=== PATIENT | female | born 1985 | race Caucasian/White ===

== ENCOUNTER → 2016-11-17 | Outpatient (CLI) | payer OTHER ==
[2016-01-05 19:35] VITALS: BP 140/90
--- NOTE | 2016-11-17 14:34 | KCIC ---
PROCEDURE Thoracic and lumbar radiographs. HISTORY Acute midline upper thoracic pain, heavy lifting at work, intermittent low back pain for 2 years COMPARISON None FINDINGS Thoracic spine: Four views of the thoracic spine are submitted. There is mild smooth dextroscoliosis centered about T5-T6. Intrapedicular at distance is preserved. Thoracic vertebral body stature and AP alignment are adequate. No acute osseous abnormality is identified by radiographs. Lumbar spine: Five views of the lumbar spine are submitted. Lumbar vertebral body stature and AP alignment are adequate. Intervertebral disc spaces are maintained. No acute osseous abnormality is identified by radiographs. IMPRESSION No acute osseous abnormality is identified of the thoracic or lumbar spine by radiographs. There is mild mid thoracic dextroscoliosis. Electronically signed by: Damir Moyer MD (Nov 17, 2016 14:32:51)
== END | disposition home or self-care (01) ==
LOC: KCIC 11:20
PROVIDERS: ATTEND Physician Assistant Medical
DX: M41.84 Other forms of scoliosis, thoracic region (principal); M54.5 Low back pain
CPT/HCPCS: 72072; 72110

== ENCOUNTER 2017-02-19 22:05 | Emergency (ER) | payer OTHER ==
[~2017-02-19] VITALS: Ht 175.3 cm; Wt 94.8 kg
[2017-02-19 22:29] VITALS: BP 162/84
--- NOTE | 2017-02-19 22:43 | PHYS DOC ---
Past Medical History Past Medical History: No Pertinent History Past Surgical History: Other Additional Past Surgical Histo: , LEEP Alcohol Use: None Drug Use: None Adult General Chief Complaint Chief Complaint: DIZZY/LIGHT HEADED HPI HPI 31-year-old female completely asymptomatic now presents to the emergency department to find out if she is . Patient states she's had some home tests which she wasn't sure might be faintly positive and some home tests which were negative so she came to the emergency department to get a definitive answer. Patient is asymptomatic and has no pelvic pain or vaginal bleeding. Review of Systems Review of Systems Constitutional: Denies fever or chills [] Eyes: Denies change in visual acuity, redness, or eye pain [] HENT: Denies nasal congestion or sore throat [] Respiratory: Denies cough or shortness of breath [] Cardiovascular: No additional information not addressed in HPI [] GI: Denies abdominal pain, nausea, vomiting, bloody stools or diarrhea [] : Denies dysuria or hematuria [] Musculoskeletal: Denies back pain or joint pain [] Integument: Denies rash or skin lesions [] Neurologic: Denies headache, focal weakness or sensory changes [] Endocrine: Denies polyuria or polydipsia [] Allergies Allergies Allergies Coded Allergies Type Severity Reaction Last Updated Verified No Known Drug Allergies 02/25/14 No Physical Exam Physical Exam Well-appearing patient distress completely benign exam. Nurse Pedro present for history and exam. Constitutional: Well developed, well nourished, no acute distress, non-toxic appearance. [] HENT: Normocephalic, atraumatic, bilateral external ears normal, oropharynx moist, no oral exudates, nose normal. [] Eyes: PERRLA, EOMI, conjunctiva normal, no discharge. [] Neck: Normal range of motion, no tenderness, supple, no stridor. [] Cardiovascular:Heart rate regular rhythm, no murmur [] Lungs & Thorax: Bilateral breath sounds clear to auscultation [] Abdomen: Bowel sounds normal, soft, no tenderness, no masses, no pulsatile masses. [] Skin: Warm, dry, no erythema, no rash. [] Back: No tenderness, no CVA tenderness. [] Extremities: No tenderness, no cyanosis, no clubbing, ROM intact, no edema. [] Neurologic: Alert and oriented X 3, normal motor function, normal sensory function, no focal deficits noted. [] Psychologic: Affect normal, judgement normal, mood normal. [] Current Patient Data Vital Signs Vital Signs Date Time Temp Pulse Resp B/P (MAP) Pulse Ox O2 Delivery O2 Flow Rate FiO2 02/19/17 22:29 98.5 85 18 98 Room Air 98.5 Lab Values Laboratory Tests Test 02/19/17 21:28 POC Urine HCG, Qualitative Hcg negative (Negative) EKG EKG [] Radiology/Procedures Radiology/Procedures [] Course & Med Decision Making Course & Med Decision Making Pertinent Labs and Imaging studies reviewed. (See chart for details) Normal exam nontender abdomen and pelvis. Asymptomatic patient with a completely benign history and exam. No further workup or treatment indicated. She is not . She is aware to do her own screening at home in the future and follow-up with an [employer] doctor. [] Dragon Disclaimer Dragon Disclaimer This electronic medical record was generated, in whole or in part, using a voice recognition dictation system. Departure Departure Impression: Primary Impression: test negative Additional Impression: Encounter for medical screening examination Disposition: HOME, SELF-CARE Condition: GOOD Referrals: TRISTON DE DIOS PA-C (PCP) Additional Instructions: Your urine test is negative today. If you suspect you might be repeat a urine test at home and follow up with your [employer] doctor as needed. Problem Qualifiers MAYELIN FIGUEROA MD Feb 19, 2017 22:43
== END 2017-02-19 23:00 | disposition home or self-care (01) ==
LOC: ER 22:05
DX: Z32.02 Encounter for pregnancy test, result negative (principal)
CPT/HCPCS: 81025; 99282

== ENCOUNTER → 2017-06-13 | Outpatient (CLI) | payer OTHER ==
--- NOTE | 2017-06-13 12:33 | KCIC ---
3 views right left foot radiograph 06/13/2017 CLINICAL INDICATION: Bilateral chronic foot pain. COMPARISON: None. FINDINGS: Left foot: No acute fracture or traumatic malalignment. Joint spaces are maintained. No osseous erosions identified. Normal alignment. Soft tissues are unremarkable. Right foot: No acute fracture or traumatic malalignment. Joint spaces are maintained. No osseous erosions identified. Soft tissues are unremarkable. IMPRESSION: No acute osseous abnormality. Electronically signed by: Nestor Loera MD (06/13/2017 12:30 PM) [id number]
== END | disposition home or self-care (01) ==
LOC: KCIC 11:50
PROVIDERS: ATTEND Physician Assistant Medical
DX: M79.671 Pain in right foot (principal)
CPT/HCPCS: 73630

== ENCOUNTER → 2017-12-20 | Outpatient (CLI) | payer OTHER | END | disposition home or self-care (01) | LOC: KCIC US 07:38 | DX: K76.0 Fatty (change of) liver, not elsewhere classified (principal); R16.0 Hepatomegaly, not elsewhere classified | CPT/HCPCS: 76705 ==

== ENCOUNTER 2019-05-12 13:54 | Emergency (ER) | payer BC, OTHER ==
[~2019-05-12] VITALS: Ht 175.3 cm; Wt 94.8 kg
--- NOTE | 2019-05-12 14:56 | PHYS DOC ---
Past Medical History Past Medical History: Anxiety, Hypertension Past Surgical History: Other Additional Past Surgical Histo: , LEEP Alcohol Use: None Drug Use: None Adult General Chief Complaint Chief Complaint: HYPERTENSION HPI HPI Patient is a 34-year-old female who presents with complaint of dizziness, elevated blood pressure and some mild chest discomfort. Patient states that she had similar symptoms yesterday but attributed it to having drank 2 monster drinks for energy. She states that today she had similar symptoms again but didn't have any monster drinks. She does indicate that she has not eaten a lot today and wonders if that may have been the cause. Patient states that she does have some chest discomfort but is not sure if that is due to anxiety or not. She denies any nausea, vomiting or diaphoresis. She states that while she was at work today she went to see the health nurse and they checked her blood pressure with findings of 170s over 90s. She denies any headache or lateralizing weakness. Review of Systems Review of Systems Constitutional: Denies fever or chills [] Eyes: Denies change in visual acuity, redness, or eye pain [] Respiratory: Denies cough or shortness of breath [] Cardiovascular: No additional information not addressed in HPI [] Musculoskeletal: Denies back pain or joint pain [] Integument: Denies rash or skin lesions [] Neurologic: Denies headache, focal weakness or sensory changes. Complains of dizziness. [] All other systems were reviewed and found to be within normal limits, except as documented in this note. Current Medications Current Medications Current Medications Medications (Trade) Dose Ordered Sig/[facility] Start Time Stop Time Status Last Admin Dose Admin Sodium Chloride 1,000 ml @ 1,000 mls/hr 1X ONCE 05/12/19 16:00 05/12/19 16:59 05/12/19 15:59 1,000 MLS/HR Allergies Allergies Allergies Coded Allergies Type Severity Reaction Last Updated Verified No Known Drug Allergies 02/25/14 No Physical Exam Physical Exam Constitutional: Well developed, well nourished, no acute distress, non-toxic appearance. [] HENT: Normocephalic, atraumatic, bilateral external ears normal, oropharynx moist, no oral exudates, nose normal. [] Eyes: PERRLA, EOMI, conjunctiva normal, no discharge. [] Neck: Normal range of motion, no tenderness, supple, no stridor. [] Cardiovascular: Regular rate and rhythm[] Lungs & Thorax: Bilateral breath sounds clear to auscultation [] Abdomen: Bowel sounds normal, soft, no tenderness. [] Skin: Warm, dry, no erythema, no rash. [] Extremities: No tenderness, no cyanosis, no clubbing, ROM intact. [] Neurologic: Alert and oriented X 3, no focal deficits noted. [] Current Patient Data Vital Signs Vital Signs Date Time Temp Pulse Resp B/P (MAP) Pulse Ox O2 Delivery O2 Flow Rate FiO2 05/12/19 14:40 63 20 100 05/12/19 14:29 142/67 (92) Room Air Lab Values Laboratory Tests Test 05/12/19 15:10 05/12/19 15:17 05/12/19 15:21 White Blood Count 7.1 x10^3/uL (4.0-11.0) Red Blood Count 5.37 x10^6/uL (3.50-5.40) Hemoglobin 14.8 g/dL (12.0-15.5) Hematocrit 42.6 % (36.0-47.0) Mean Corpuscular Volume 79 fL (79-100) Mean Corpuscular Hemoglobin 28 pg (25-35) Mean Corpuscular Hemoglobin Concent 35 g/dL (31-37) Red Cell Distribution Width 13.6 % (11.5-14.5) Platelet Count 251 x10^3/uL (140-400) Neutrophils (%) (Auto) 61 % (31-73) Lymphocytes (%) (Auto) 30 % (24-48) Monocytes (%) (Auto) 7 % (0-9) Eosinophils (%) (Auto) 1 % (0-3) Basophils (%) (Auto) 1 % (0-3) Neutrophils # (Auto) 4.3 x10^3/uL (1.8-7.7) Lymphocytes # (Auto) 2.1 x10^3/uL (1.0-4.8) Monocytes # (Auto) 0.5 x10^3/uL (0.0-1.1) Eosinophils # (Auto) 0.1 x10^3/uL (0.0-0.7) Basophils # (Auto) 0.0 x10^3/uL (0.0-0.2) Sodium Level 139 mmol/L (136-145) Potassium Level 3.3 mmol/L (3.5-5.1) L Chloride Level 99 mmol/L (98-107) Carbon Dioxide Level 30 mmol/L (21-32) Anion Gap 10 (6-14) Blood Urea Nitrogen 12 mg/dL (7-20) Creatinine 0.9 mg/dL (0.6-1.0) Estimated GFR (Cockcroft-Gault) 72.6 BUN/Creatinine Ratio 13 (6-20) Glucose Level 120 mg/dL (70-99) H Calcium Level 10.1 mg/dL (8.5-10.1) Magnesium Level 1.8 mg/dL (1.8-2.4) Total Bilirubin 0.4 mg/dL (0.2-1.0) Aspartate Amino Transferase (AST) 71 U/L (15-37) H Alanine Aminotransferase (ALT) 68 U/L (14-59) H Alkaline Phosphatase 89 U/L (46-116) Troponin I Quantitative < 0.017 ng/mL (0.000-0.055) FJ-Wny-T-Type Natriuretic Peptide 11 pg/mL (0-124) Total Protein 8.4 g/dL (6.4-8.2) H Albumin 4.3 g/dL (3.4-5.0) Albumin/Globulin Ratio 1.0 (1.0-1.7) Urine Collection Type Unknown Urine Color Yellow Urine Clarity Clear Urine pH 5.0 Urine Specific Dent <=1.005 Urine Protein Negative mg/dL (NEG-TRACE) Urine Glucose (UA) Negative mg/dL (NEG) Urine Ketones (Stick) Negative mg/dL (NEG) Urine Blood Negative (NEG) Urine Nitrite Negative (NEG) Urine Bilirubin Negative (NEG) Urine Urobilinogen Dipstick 0.2 mg/dL (0.2 mg/dL) Urine Leukocyte Esterase Negative (NEG) Urine RBC 0 /HPF (0-2) Urine WBC Occ /HPF (0-4) Urine Squamous Epithelial Cells Mod /LPF Urine Bacteria Moderate /HPF (0-FEW) POC Urine HCG, Qualitative Hcg negative (Negative) Laboratory Tests 05/12/19 15:10 Laboratory Tests 05/12/19 15:10 EKG EKG [] Radiology/Procedures Radiology/Procedures [] Impressions: REASON: dizziness; chest discomfort PROCEDURE: PORTABLE CHEST 1V PORTABLE CHEST 1V Clinical indications: Dizziness. Chest discomfort. COMPARISON: None available. Findings: No acute lung infiltrate or pleural effusion or pulmonary edema or lung mass or pneumothorax is seen. The heart size, pulmonary vasculature, mediastinum and both leena are unremarkable. . Impression: No acute radiographic abnormality is seen. Electronically signed by: Jessica Cat MD (05/12/2019 4:18 PM) [facility] DICTATED and SIGNED BY: JESSICA CAT MD DATE: 05/12/19 1618 Course & Med Decision Making Course & Med Decision Making Pertinent Labs and Imaging studies reviewed. (See chart for details) [] Dragon Disclaimer Dragon Disclaimer This electronic medical record was generated, in whole or in part, using a voice recognition dictation system. Departure Departure Impression: Primary Impression: Elevated blood pressure reading Additional Impression: Dizziness Disposition: 01 HOME, SELF-CARE Condition: STABLE Referrals: TRISTON DE DIOS PA-C (PCP) Patient Instructions: Dizziness, Hypertension Scripts Meclizine Hcl (MECLIZINE HCL) 25 Mg Tablet 25 MG PO PRN TID PRN for DIZZINESS, #30 dizziness Prov: IZABELLA MEJIA Jr. DO 05/12/19 Problem Qualifiers IZABELLA MEJIA Jr. DO May 12, 2019 14:56
[2019-05-12 15:23] LABS: BASO % 1 % (0-3); EOS # 0.1 x10^3/uL (0.0-0.7); EOS % 1 % (0-3); HEMATOCRIT 42.6 % (36.0-47.0); HEMOGLOBIN 14.8 g/dL (12.0-15.5); LYMPH # 2.1 x10^3/uL (1.0-4.8); LYMPH % 30 % (24-48); MEAN CORPUSCULAR HEMOGLOBIN 28 pg (25-35); MEAN CORPUSCULAR HGB CONC 35 g/dL (31-37); MEAN CORPUSCULAR VOLUME 79 fL (79-100); MONO # 0.5 x10^3/uL (0.0-1.1); MONO % 7 % (0-9); NEUT # 4.3 x10^3/uL (1.8-7.7); NEUT % 61 % (31-73); PLATELET COUNT 251 x10^3/uL (140-400); RED BLOOD COUNT 5.37 x10^6/uL (3.50-5.40); RED CELL DISTRIBUTION WIDTH 13.6 % (11.5-14.5); WHITE BLOOD COUNT 7.1 x10^3/uL (4.0-11.0)
[2019-05-12 15:26] LABS: BILIRUBIN,URINE NEGATIVE (NEG); CLARITY,URINE CLEAR; COLOR,URINE YELLOW; NITRITE,URINE NEGATIVE (NEG); PROTEIN,URINE NEGATIVE (NEG-TRACE); UROBILINOGEN,URINE 0.2 mg/dL (0.2 mg/dL)
[2019-05-12 15:31] LABS: CALCIUM 10.1 mg/dL (8.5-10.1); CREATININE 0.9 mg/dL (0.6-1.0); GFR 72.6; POTASSIUM 3.3 mmol/L (3.5-5.1)
[2019-05-12 15:37] LABS: ALBUMIN 4.3 g/dL (3.4-5.0); MAGNESIUM 1.8 mg/dL (1.8-2.4); TOTAL BILIRUBIN 0.4 mg/dL (0.2-1.0); TOTAL PROTEIN 8.4 g/dL (6.4-8.2)
[2019-05-12 15:41] LABS: SQUAMOUS EPITHELIAL CELL,UR MOD /LPF
[2019-05-12 15:42] LABS: BACTERIA,URINE MODERATE /HPF (0-FEW); RBC,URINE 0 /HPF (0-2); WBC,URINE OCC /HPF (0-4)
[2019-05-12] MEDS ORDERED: IV NORMAL SALINE 1000ML BAG 1,000 ML IV ONE (16:00)
--- NOTE | 2019-05-12 16:20 | RAD ---
PORTABLE CHEST 1V Clinical indications: Dizziness. Chest discomfort. COMPARISON: None available. Findings: No acute lung infiltrate or pleural effusion or pulmonary edema or lung mass or pneumothorax is seen. The heart size, pulmonary vasculature, mediastinum and both leena are unremarkable. . Impression: No acute radiographic abnormality is seen. Electronically signed by: Aquiles Cat MD (05/12/2019 4:18 PM) [facility]
[2019-05-12] MEDS ORDERED: MECL25TA3 PO (16:29)
[2019-05-12 16:30] VITALS: BP 139/75
--- NOTE | 2019-05-13 11:34 | EKG ---
[facility] [address] [place] [address] Test Date: 2019-05-12 Test Time: 15:24:06 Pat Name: MAGALY TAVAREZ Department: Room: Gender: F Benefit Authorizer: : [id number] Requested By: IZABELLA MEJIA Order Number: [id number] Reading MD: Federico Allen MD Measurements Intervals [place] Rate: 67 P: 38 PA: 134 QRS: 7 QRSD: 84 T: 28 QT: 422 QTc: 448 Interpretive Statements SINUS RHYTHM Electronically Signed On 05-22-2019 10:24:47 CDT by Federico Allen MD
== END 2019-05-12 16:41 | disposition home or self-care (01) ==
LOC: ER 13:54
DX: I10 Essential (primary) hypertension (principal); R42 Dizziness and giddiness; F41.9 Anxiety disorder, unspecified; Z98.890 Other specified postprocedural states
CPT/HCPCS: 36415; 71045; 80053; 81001; 81025; 83735; 83880; 84484; 85025; 87086; 93005; 99285; J7030